=== PATIENT | female | born 1995 | race Caucasian/White ===

== ENCOUNTER 2018-09-11 11:25 | Emergency (ER) | payer OTHER ==
[2018-09-11 11:37] VITALS: RESP 18
[2018-09-11] MEDS ORDERED: HYDROcodone/APAP 5-325MG 1 EACH TAB PO STA (11:43)
[2018-09-11] MEDS ORDERED: IBUPROFEN 600 MG TAB PO STA (11:43)
--- NOTE | 2018-09-11 12:24 | XR ---
EXAMINATION TYPE: XR thoracic spine 2V DATE OF EXAM: 09/11/2018 COMPARISON: NONE HISTORY: Pain Alignment is anatomic. There is no compression deformities. There is a mild superior endplate compre ssion deformity at the approximate level of T5 or T6 of indeterminate age. IMPRESSION: 1. Mild superior endplate compression deformity at the approximate level of T5 or T6 of indeterminate age correlate clinically.
--- NOTE | 2018-09-11 12:54 | ED ---
Back Pain HPI - General Chief Complaint: Back Pain/Injury Stated Complaint: [facility] - head injury Time Seen by Provider: 09/11/18 11:27 Source: patient, EMS, RN notes reviewed Limitations: no limitations - History of Present Illness Initial Comments: 23-year-old female presents emergency department via EMS chief complaint back pain. Patient states she was at work when she states she was in the back of a semi-states that Suzy Hinds will be in movement and states that they fell pushing her back and she fell. Patient states she primary fell in her upper back she did strike her head but she had no headache no loss conscious. Patient denies any dizziness, blurred vision. Patient states that she is placed in a c-collar and she has no neck pain. Patient denies any upper or lower extremity pain, numbness or tingling, weakness. She states it does hurt when she takes a deep breath or she moves. She denies any nausea vomiting denies any chance . - Related Data Home Medications Medication Instructions Recorded Confirmed [id number] 1 tab PO Q4HR PRN 09/11/18 09/11/18 [Excedrin] Previous Rx's Medication Instructions Recorded Hydrocodone/Acetaminophen [[place] 1 tab PO Q6HR PRN #12 tab 09/11/18 5-325] Allergies Allergy/AdvReac Type Severity Reaction Status Date / Time No Known Allergies Allergy Verified 09/11/18 11:35 Review of Systems ROS Statement: Those systems with pertinent positive or pertinent negative responses have been documented in the HPI. ROS Other: All systems not noted in ROS Statement are negative. Past Medical History Past Medical History: No Reported History History of Any Multi-Drug Resistant Organisms: None Reported Past Surgical History: No Surgical Hx Reported Past Psychological History: No Psychological Hx Reported Smoking Status: Never smoker Past Alcohol Use History: None Reported Past Drug Use History: None Reported General Exam Limitations: no limitations General appearance: alert, in no apparent distress Head exam: Present: atraumatic, normocephalic, normal inspection Eye exam: Present: normal appearance, PERRL, EOMI. Absent: scleral icterus, conjunctival injection, periorbital swelling ENT exam: Present: normal exam, normal oropharynx, mucous membranes moist Neck exam: Present: normal inspection, full ROM. Absent: tenderness, meningismus, lymphadenopathy Respiratory exam: Present: normal lung sounds bilaterally. Absent: respiratory distress, wheezes, rales, rhonchi, stridor, chest wall tenderness Cardiovascular Exam: Present: regular rate, normal rhythm, normal heart sounds. Absent: systolic murmur, diastolic murmur, rubs, gallop, clicks GI/Abdominal exam: Present: soft, normal bowel sounds. Absent: distended, tenderness, guarding, rebound, rigid Back exam: Present: normal inspection, full ROM, tenderness (Tenderness to the midthoracic region), paraspinal tenderness, vertebral tenderness (Mid thoracic) , other (No lumbar tenderness) Neurological exam: Present: alert, oriented X3, CN II-XII intact, reflexes normal. Absent: motor sensory deficit Skin exam: Present: warm, dry, intact, normal color. Absent: rash Course Vital Signs 09/11/18 11:34 Temperature 98.3 F Pulse Rate 62 Respiratory 18 Rate Blood Pressure 121/73 O2 Sat by Pulse 100 Oximetry Medical Decision Making - Medical Decision Making 23-year-old female presented via EMS for fall back pain. Patient has noted compression fracture T5-T6. Case is discussed with on-call orthopedics. Patient will follow-up with Dr. Brandt tomorrow Patient given adequate pain control in the emergency department and outpatient. Return parameters were discussed. Patient has no neurological symptoms. Disposition Clinical Impression: Fracture, thoracic vertebra, compression Disposition: HOME SELF-CARE Condition: Stable Instructions: Vertebral Compression Fracture (ED) Additional Instructions: Please return to the Emergency Department if symptoms worsen or any other concerns. Do not do any heavy lifting, limit twisting and bending. Prescriptions: Hydrocodone/Acetaminophen [[place]y 5-325] 1 tab PO Q6HR PRN #12 tab PRN Reason: Pain Is patient prescribed a controlled substance at d/c from ED?: Yes When asked, does pt state using other controlled substances?: No If prescribed controlled substance>3 days was MAPS reviewed?: Prescribed <3 Days If opioid is for acute pain is fill amount 7 days or less?: Yes If Rx opioid, was Start Talking consent form obtained?: Yes Referrals: None,Stated [Primary Care Provider] - 1-2 days Alexy Devi DO [Doctor of Osteopathic Medicine] - 1-2 days Time of Disposition: 13:36
[2018-09-11 14:30] VITALS: BP 121/79; PULSE 73; TEMP 99
== END 2018-09-11 14:23 | disposition home or self-care (01) ==
LOC: EC 11:25
DX: S22.059A Unspecified fracture of T5-T6 vertebra, initial encounter for closed fracture (principal); W01.198A Fall on same level from slipping, tripping and stumbling with subsequent striking against other object, initial encounter; Y92.69 Other specified industrial and construction area as the place of occurrence of the external cause; Y99.0 Civilian activity done for income or pay
CPT/HCPCS: 72070; 99283